=== PATIENT | female | born 1935 | race Caucasian/White ===

== ENCOUNTER 2023-10-30 10:15 | Inpatient (IN) | payer OTHER ==
[~2023-10-30] VITALS: Ht 165.1 cm; Wt 84.6 kg
[2023-10-30 10:37] VITALS: PULSE 98; RESP 18; O2SAT 100
[2023-10-30 11:20] LABS: Basophils # (auto) 0.1 10 ^3/uL (0-0.2); Lymphocytes # (auto) 3.4 10 ^3/uL (0.4-5.4)
[2023-10-30 11:22] LABS: Basophils % (auto) 0.6 % (0.0-2.0); Eosinophils # (auto) 0.2 10 ^3/uL (0-0.8); Eosinophils % (auto) 1.7 % (0.0-7.0); Hematocrit 38.2 % (36.0-46.0); Hemoglobin 12.2 g/dL (12.2-16.2); Mean Corpuscular Hemoglobin 29.8 pg (28.0-32.0); Mean Corpuscular Hgb Conc. 31.8 g/dL (32.0-36.0); Mean Corpuscular Volume 93.5 fL (80.0-100.0); Monocytes % (auto) 6.9 % (0.0-12.0); Neutrophils # (auto) 9.4 10 ^3/uL (1.6-8.6); Neutrophils % (auto) 66.8 % (37.0-80.0); Nucleated Red Blood Cells % 0.2 %; Red Blood Cells 4.09 10^6/uL (4.0-5.20); Red Cell Distribution Width 14.7 % (11.8-14.3); White Blood Cell 14.1 10^3/uL (4.4-10.8)
[2023-10-30 11:36] LABS: INR 1.03 (0.9-1.15); Partial Thromboplastin Time 27.1 SEC (24.5-34.5); Prothrombin Time 10.8 sec (9.3-11.8)
[2023-10-30 11:43] LABS: Alanine Aminotransferase 98 U/L (7-40); Albumin 3.6 g/dL (3.2-4.8); Alkaline Phosphatase 147 U/L (46-116); Anion Gap 5 (5-15); Aspartate Aminotransferase 50 U/L (13-40); BUN/Creatinine Ratio 38.5 (10.0-20.0); Bilirubin, Total 0.3 mg/dL (0.2-1.0); Blood Urea Nitrogen 35 mg/dL (9-23); Calcium 12.4 mg/dL (8.7-10.4); Carbon Dioxide 24 mmol/L (20-30); Chloride 110 mmol/L (98-107); Glucose 90 mg/dL (74-106); Potassium 4.5 mmol/L (3.5-5.1); Sodium 139 mmol/L (136-145); Total Protein 7.1 g/dL (5.7-8.2)
[2023-10-30] MEDS ORDERED: NITROGLYCERIN 0.4 MG SL TAB SL PRN (14:15)
[2023-10-30] MEDS ORDERED: MORPHINE SULFATE INJ 2 MG/ml SYRG IV PRN (14:15)
[2023-10-30] MEDS ORDERED: ACETAMINOPHEN 325 MG TAB PO PRN (14:15)
[2023-10-30 14:42] LABS: Triglycerides 114 mg/dL (< 150)
[2023-10-30 14:43] LABS: LDL Cholesterol 95 mg/dL (< 100)
[2023-10-30 14:44] LABS: Cholesterol 157 mg/dL (< 200); HDL Cholesterol 43 mg/dL (40-59)
[2023-10-30] MEDS: SODIUM CHLORIDE 0.9% 1,000 ML IV SCH (15:21)
[2023-10-30] MEDS: PANTOPRAZOLE 40 MG/10 ML VIAL INJ IV ONE (15:21)
[2023-10-30 15:39] LABS: Urine Amorphous Crystal FEW /hpf (None Seen); Urine Bacteria MOD /hpf (None Seen); Urine Blood Negative /uL (Negative); Urine Clarity Clear (Clear); Urine Color Yellow (Yellow); Urine Protein, UAD Negative (Negative); Urine Specific Gravity 1.014 (1.001-1.035); Urine Urobilinogen Normal (Negative); Urine WBC 59 /hpf (0 - 5)
[2023-10-30 15:59] LABS: Amphetamine Screen, Urine Neg (NEGATIVE)
[2023-10-30 16:00] LABS: Barbiturate Scree,Urine Neg (NEGATIVE); Cocaine Screen, Urine Neg (NEGATIVE); Opiate Scree,Urine Neg (NEGATIVE)
[2023-10-30 16:01] LABS: Benzodiazephine Screen, Urine Neg (NEGATIVE); Cannabinoid Screen, Urine Neg (NEGATIVE); Phencyclidine Screen, Urine Neg (NEGATIVE)
[2023-10-30 20:24] LABS: Basophils # (auto) 0 10 ^3/uL (0-0.2); Basophils % (auto) 0.2 % (0.0-2.0); Eosinophils # (auto) 0.1 10 ^3/uL (0-0.8); Hematocrit 40.4 % (36.0-46.0); Hemoglobin 12.1 g/dL (12.2-16.2); Lymphocytes # (auto) 2.8 10 ^3/uL (0.4-5.4); Lymphocytes % (auto) 20.4 % (10.0-50.0); Mean Corpuscular Hemoglobin 30.3 pg (28.0-32.0); Mean Corpuscular Hgb Conc. 29.9 g/dL (32.0-36.0); Mean Corpuscular Volume 101.1 fL (80.0-100.0); Monocytes # (auto) 1.2 10 ^3/uL (0-1.3); Monocytes % (auto) 8.4 % (0.0-12.0); Neutrophils # (auto) 9.7 10 ^3/uL (1.6-8.6); Nucleated Red Blood Cells % 0.2 %; Red Cell Distribution Width 16.7 % (11.8-14.3); White Blood Cell 13.9 10^3/uL (4.4-10.8)
[2023-10-30 20:34] VITALS: PULSE 107; RESP 20
[2023-10-30] MEDS: ASCORBIC ACID 500 MG TAB PO SCH (22:00)
[2023-10-31 08:00] VITALS: PULSE 95
[2023-10-31 09:00] VITALS: BP 148/76; PULSE 93; RESP 14; TEMP 97.8; O2SAT 97
[2023-10-31] MEDS: ZINC SULFATE 220mg CAP or TAB PO SCH (10:28)
[2023-10-31] MEDS: cefTRIAXone 1GM/50ML D5W 50 ML IV ONE (10:28)
[2023-10-31] MEDS: PANTOPRAZOLE 40 MG/10 ML VIAL INJ IV SCH (10:28)
[2023-10-31] MEDS: MULTIPLE VITAMIN TAB PO SCH (10:29)
[2023-10-31] MEDS ORDERED: CINA30TA14 PO (12:50)
[2023-10-31] MEDS ORDERED: AMLO1TAB23 PO (12:50)
[2023-10-31] MEDS ORDERED: TELM1TAB35 PO (12:50)
[2023-10-31] MEDS ORDERED: LATA0.008 EACHEYE (12:52)
[2023-10-31] MEDS ORDERED: BRIM0.159 EACHEYE (12:52)
[2023-10-31] MEDS ORDERED: NETA0.02 RIGHTEYE (12:52)
[2023-10-31 12:55] VITALS: BP 134/73; PULSE 101; RESP 18; TEMP 97.3; O2SAT 99
[2023-10-31 14:08] LABS: Alanine Aminotransferase 67 U/L (7-40); Albumin 3.6 g/dL (3.2-4.8); Alkaline Phosphatase 142 U/L (46-116); Anion Gap 5 (5-15); Aspartate Aminotransferase 39 U/L (13-40); BUN/Creatinine Ratio 23.9 (10.0-20.0); Bilirubin, Total 0.3 mg/dL (0.2-1.0); Blood Urea Nitrogen 21 mg/dL (9-23); Calcium 12.9 mg/dL (8.5-10.1); Carbon Dioxide 24 mmol/L (20-30); Chloride 114 mmol/L (98-107); Glucose 88 mg/dL (74-106); Potassium 4.4 mmol/L (3.5-5.1); Sodium 143 mmol/L (136-145); Total Protein 6.7 g/dL (5.7-8.2)
[2023-10-31 16:31] VITALS: BP 141/60; PULSE 102; RESP 16; TEMP 98.2; O2SAT 100
[2023-10-31 16:37] LABS: Basophils # (auto) 0 10 ^3/uL (0-0.2); Basophils % (auto) 0.4 % (0.0-2.0); Eosinophils # (auto) 0.1 10 ^3/uL (0-0.8); Eosinophils % (auto) 0.7 % (0.0-7.0); Hemoglobin 11.6 g/dL (12.2-16.2); Lymphocytes # (auto) 2.4 10 ^3/uL (0.4-5.4); Lymphocytes % (auto) 19.4 % (10.0-50.0); Mean Corpuscular Hemoglobin 29.3 pg (28.0-32.0); Mean Corpuscular Hgb Conc. 31.3 g/dL (32.0-36.0); Mean Corpuscular Volume 93.5 fL (80.0-100.0); Monocytes # (auto) 0.8 10 ^3/uL (0-1.3); Monocytes % (auto) 6.7 % (0.0-12.0); Neutrophils % (auto) 72.8 % (37.0-80.0); Nucleated Red Blood Cells % 0.1 %; Red Blood Cells 3.96 10^6/uL (4.0-5.20); Red Cell Distribution Width 14.9 % (11.8-14.3); White Blood Cell 12.4 10^3/uL (4.4-10.8)
[2023-10-31 20:00] VITALS: PULSE 100; PULSE 107; RESP 18
[2023-10-31] MEDS: GOLYTELY 4L KIT PO ONE (21:43)
[2023-10-31 22:00] VITALS: BP 110/77; PULSE 90; RESP 20; TEMP 97.6; O2SAT 96
[2023-11-01] VITALS (7 sets, daily range): BP systolic 124–139; BP diastolic 66–74; PULSE 84–115; RESP 16–20; TEMP 97.4–98.3; O2SAT 91–99
[2023-11-01] MEDS: cefTRIAXone 1GM/50ML D5W 50 ML IV SCH (08:56)
[2023-11-01] MEDS: IOHEXOL 350 MG/ML 100ML IJ ONE (13:42)
[2023-11-01 14:52] LABS: Basophils # (auto) 0.1 10 ^3/uL (0-0.2); Basophils % (auto) 0.4 % (0.0-2.0); Eosinophils # (auto) 0.2 10 ^3/uL (0-0.8); Eosinophils % (auto) 1.3 % (0.0-7.0); Hematocrit 31.7 % (36.0-46.0); Hemoglobin 9.9 g/dL (12.2-16.2); Lymphocytes # (auto) 2.4 10 ^3/uL (0.4-5.4); Mean Corpuscular Hemoglobin 28.7 pg (28.0-32.0); Mean Corpuscular Hgb Conc. 31.3 g/dL (32.0-36.0); Mean Corpuscular Volume 91.5 fL (80.0-100.0); Monocytes % (auto) 7.7 % (0.0-12.0); Neutrophils # (auto) 9.2 10 ^3/uL (1.6-8.6); Neutrophils % (auto) 71.6 % (37.0-80.0); Nucleated Red Blood Cells % 0.1 %; Red Blood Cells 3.47 10^6/uL (4.0-5.20); Red Cell Distribution Width 14.7 % (11.8-14.3); White Blood Cell 12.8 10^3/uL (4.4-10.8)
[2023-11-01 15:20] LABS: Alanine Aminotransferase 51 U/L (7-40); Albumin 3.2 g/dL (3.2-4.8); Alkaline Phosphatase 118 U/L (46-116); Anion Gap 5 (5-15); Aspartate Aminotransferase 30 U/L (13-40); BUN/Creatinine Ratio 24.3 (10.0-20.0); Bilirubin, Total 0.3 mg/dL (0.2-1.0); Blood Urea Nitrogen 18 mg/dL (9-23); Carbon Dioxide 23 mmol/L (20-30); Chloride 114 mmol/L (98-107); Glucose 95 mg/dL (74-106); Potassium 4.1 mmol/L (3.5-5.1); Sodium 142 mmol/L (136-145); Total Protein 6.1 g/dL (5.7-8.2)
[2023-11-01] MEDS: SODIUM CHLORIDE 0.9% 1,000 ML IV SCH (16:00)
[2023-11-01] MEDS: CALCITONIN 400unit/2ml Vial (200unit/ml) IM ONE (16:00)
[2023-11-01] MEDS: ENOXAPARIN SOD 100 MG/1 ML SYRINGE SC SCH (18:04)
[2023-11-02] VITALS (7 sets, daily range): BP systolic 111–147; BP diastolic 63–72; PULSE 77–105; RESP 17–21; TEMP 97.2–98.9; O2SAT 99–100
[2023-11-02 08:30] LABS: Hepatitis B Surface Antigen Negative (Negative)
[2023-11-02 08:35] LABS: Hepatitis B Surface Antigen Negative (Negative)
[2023-11-02 08:51] LABS: Hepatitis A Ab IgM Negative; Hepatitis B Core IgM Negative
[2023-11-02 08:52] LABS: Hepatitis C Antibody Negative (Negative)
[2023-11-02 08:56] LABS: Hepatitis C Antibody Negative (Negative)
[2023-11-02 13:35] LABS: Basophils # (auto) 0.1 10 ^3/uL (0-0.2); Basophils % (auto) 0.7 % (0.0-2.0); Eosinophils # (auto) 0.3 10 ^3/uL (0-0.8); Eosinophils % (auto) 2.7 % (0.0-7.0); Hematocrit 31.6 % (36.0-46.0); Hemoglobin 10.3 g/dL (12.2-16.2); Lymphocytes # (auto) 2.6 10 ^3/uL (0.4-5.4); Lymphocytes % (auto) 25.1 % (10.0-50.0); Mean Corpuscular Hgb Conc. 32.6 g/dL (32.0-36.0); Monocytes # (auto) 0.9 10 ^3/uL (0-1.3); Monocytes % (auto) 8.5 % (0.0-12.0); Neutrophils # (auto) 6.6 10 ^3/uL (1.6-8.6); Red Blood Cells 3.43 10^6/uL (4.0-5.20); Red Cell Distribution Width 14.7 % (11.8-14.3); White Blood Cell 10.5 10^3/uL (4.4-10.8)
[2023-11-02 13:53] LABS: Alanine Aminotransferase 45 U/L (7-40); Albumin 3.2 g/dL (3.2-4.8); Alkaline Phosphatase 121 U/L (46-116); Anion Gap 5 (5-15); Aspartate Aminotransferase 31 U/L (13-40); BUN/Creatinine Ratio 19.4 (10.0-20.0); Blood Urea Nitrogen 13 mg/dL (9-23); Calcium 11.7 mg/dL (8.5-10.1); Carbon Dioxide 27 mmol/L (20-30); Chloride 116 mmol/L (98-107); Glucose 93 mg/dL (74-106)
[2023-11-02 13:54] LABS: % Iron Saturation 22.8 % (15-50); Bilirubin, Total 0.2 mg/dL (0.2-1.0); Total Protein 5.9 g/dL (5.7-8.2)
[2023-11-02 13:55] LABS: Sodium 148 mmol/L (136-145)
[2023-11-02] MEDS ORDERED: APIX2.5T PO (15:45)
[2023-11-03] VITALS (11 sets, daily range): BP systolic 128–157; BP diastolic 68–83; PULSE 79–117; RESP 12–22; TEMP 97.8–98.6; O2SAT 94–100
[2023-11-03] MEDS: LIDOCAINE 2%HCL (LOCAL ANESTH.) INJ 20ML MDV ONE (08:27)
[2023-11-03] MEDS: IODIXANOL 320MG/ML 100ML BTL IV ONE (08:27)
[2023-11-03] MEDS: fentaNYL CITRATE 100 MCG/2 ML VL ONE (08:47)
[2023-11-03] MEDS: MIDAZOLAM HCL 2MG/2ML 2ml VIAL (1mg/ml) ONE (08:48)
[2023-11-03 14:04] LABS: Basophils # (auto) 0 10 ^3/uL (0-0.2); Basophils % (auto) 0.3 % (0.0-2.0); Eosinophils # (auto) 0.2 10 ^3/uL (0-0.8); Eosinophils % (auto) 2.3 % (0.0-7.0); Hematocrit 34.6 % (36.0-46.0); Hemoglobin 10.9 g/dL (12.2-16.2); Lymphocytes # (auto) 2.3 10 ^3/uL (0.4-5.4); Lymphocytes % (auto) 23.8 % (10.0-50.0); Mean Corpuscular Hgb Conc. 31.7 g/dL (32.0-36.0); Mean Corpuscular Volume 91.7 fL (80.0-100.0); Monocytes # (auto) 0.7 10 ^3/uL (0-1.3); Monocytes % (auto) 7.2 % (0.0-12.0); Neutrophils # (auto) 6.5 10 ^3/uL (1.6-8.6); Neutrophils % (auto) 66.4 % (37.0-80.0); Nucleated Red Blood Cells % 0.2 %; Red Blood Cells 3.77 10^6/uL (4.0-5.20); White Blood Cell 9.8 10^3/uL (4.4-10.8)
[2023-11-03 14:21] LABS: Alanine Aminotransferase 43 U/L (7-40); Albumin 3.2 g/dL (3.2-4.8); Alkaline Phosphatase 130 U/L (46-116); Anion Gap 5 (5-15); Aspartate Aminotransferase 37 U/L (13-40); BUN/Creatinine Ratio 13.3 (10.0-20.0); Blood Urea Nitrogen 8 mg/dL (9-23); Calcium 11.5 mg/dL (8.5-10.1); Carbon Dioxide 27 mmol/L (20-30); Chloride 116 mmol/L (98-107); Glucose 105 mg/dL (74-106); Potassium 3.2 mmol/L (3.5-5.1); Sodium 148 mmol/L (136-145)
[2023-11-03 14:22] LABS: Bilirubin, Total 0.3 mg/dL (0.2-1.0); Total Protein 6.1 g/dL (5.7-8.2)
[2023-11-03] MEDS: GOLYTELY 4L KIT PO ONE (15:30)
[2023-11-04] VITALS (8 sets, daily range): BP systolic 113–150; BP diastolic 54–84; PULSE 66–102; RESP 18–20; TEMP 97.5–98.7; O2SAT 91–100
[2023-11-04] MEDS: GOLYTELY 4L KIT PO ONE (05:47)
[2023-11-04] MEDS: MAGNESIUM CITRATE SOLUTION 300 ML BTL PO ONE (06:00)
[2023-11-04 06:19] LABS: Basophils # (auto) 0 10 ^3/uL (0-0.2); Basophils % (auto) 0.2 % (0.0-2.0); Eosinophils # (auto) 0.3 10 ^3/uL (0-0.8); Eosinophils % (auto) 3.4 % (0.0-7.0); Hematocrit 31.9 % (36.0-46.0); Hemoglobin 10.3 g/dL (12.2-16.2); Lymphocytes # (auto) 2.1 10 ^3/uL (0.4-5.4); Lymphocytes % (auto) 20.8 % (10.0-50.0); Mean Corpuscular Hemoglobin 29.6 pg (28.0-32.0); Mean Corpuscular Hgb Conc. 32.3 g/dL (32.0-36.0); Mean Corpuscular Volume 91.6 fL (80.0-100.0); Monocytes # (auto) 0.7 10 ^3/uL (0-1.3); Neutrophils # (auto) 6.9 10 ^3/uL (1.6-8.6); Neutrophils % (auto) 68.6 % (37.0-80.0); Nucleated Red Blood Cells % 0.1 %; Red Blood Cells 3.48 10^6/uL (4.0-5.20); White Blood Cell 10.1 10^3/uL (4.4-10.8)
[2023-11-04 06:46] LABS: Alanine Aminotransferase 38 U/L (7-40); Alkaline Phosphatase 124 U/L (46-116); Anion Gap 6 (5-15); Aspartate Aminotransferase 32 U/L (13-40); BUN/Creatinine Ratio 9.7 (10.0-20.0); Blood Urea Nitrogen 6 mg/dL (9-23); Calcium 11.4 mg/dL (8.5-10.1); Carbon Dioxide 26 mmol/L (20-30); Chloride 115 mmol/L (98-107); Glucose 85 mg/dL (74-106); Potassium 3.4 mmol/L (3.5-5.1); Sodium 147 mmol/L (136-145)
[2023-11-04 06:47] LABS: Bilirubin, Total 0.3 mg/dL (0.2-1.0); Total Protein 5.6 g/dL (5.7-8.2)
[2023-11-04] MEDS: POTASSIUM CHL 20MEQ/100ML 100 ML IV ONE (09:31)
[2023-11-04] MEDS ORDERED: fentaNYL CITRATE 100 MCG/2 ML VL ONE (14:39)
[2023-11-04] MEDS ORDERED: ePHEDrine SULFATE 50 MG/ML AMP ONE (14:52)
[2023-11-04] MEDS ORDERED: PROPOFOL 10 MG/ML 20 ML IV ONE (14:54)
[2023-11-05 01:00] VITALS: BP 127/70; PULSE 103; RESP 17; TEMP 98.5; O2SAT 96
[2023-11-05 05:00] VITALS: BP 130/70; PULSE 95; RESP 18; TEMP 98.4; O2SAT 95
[2023-11-05 05:43] LABS: Basophils # (auto) 0 10 ^3/uL (0-0.2); Basophils % (auto) 0.4 % (0.0-2.0); Eosinophils # (auto) 0.3 10 ^3/uL (0-0.8); Eosinophils % (auto) 2.8 % (0.0-7.0); Hemoglobin 9.4 g/dL (12.2-16.2); Lymphocytes # (auto) 2.4 10 ^3/uL (0.4-5.4); Lymphocytes % (auto) 21.8 % (10.0-50.0); Mean Corpuscular Hemoglobin 28.7 pg (28.0-32.0); Mean Corpuscular Hgb Conc. 31.2 g/dL (32.0-36.0); Mean Corpuscular Volume 91.8 fL (80.0-100.0); Monocytes # (auto) 0.6 10 ^3/uL (0-1.3); Monocytes % (auto) 5.5 % (0.0-12.0); Neutrophils # (auto) 7.7 10 ^3/uL (1.6-8.6); Neutrophils % (auto) 69.5 % (37.0-80.0); Nucleated Red Blood Cells % 0.1 %; Red Blood Cells 3.27 10^6/uL (4.0-5.20); Red Cell Distribution Width 14.8 % (11.8-14.3)
[2023-11-05 06:12] LABS: Alanine Aminotransferase 41 U/L (7-40); Albumin 2.6 g/dL (3.2-4.8); Alkaline Phosphatase 120 U/L (46-116); Anion Gap 10 (5-15); Aspartate Aminotransferase 37 U/L (13-40); BUN/Creatinine Ratio 14.3 (10.0-20.0); Bilirubin, Total 0.2 mg/dL (0.2-1.0); Blood Urea Nitrogen 8 mg/dL (9-23); Calcium 10.6 mg/dL (8.5-10.1); Carbon Dioxide 20 mmol/L (20-30); Chloride 114 mmol/L (98-107); Glucose 75 mg/dL (74-106); Potassium 3.6 mmol/L (3.5-5.1); Sodium 144 mmol/L (136-145)
[2023-11-05 06:13] LABS: Total Protein 4.7 g/dL (5.7-8.2)
[2023-11-05 08:00] VITALS: BP 106/53; PULSE 86; PULSE 97; RESP 16; TEMP 97.9; O2SAT 97
[2023-11-05] MEDS ORDERED: LEVO500T91 PO (08:38)
[2023-11-05 09:00] VITALS: BP 106/53; PULSE 97; RESP 16; TEMP 97.9; O2SAT 97
[2023-11-05 10:41] VITALS: BP 100/60; PULSE 97; RESP 18; TEMP 97.9; O2SAT 91
[2023-11-05 13:00] VITALS: BP 135/80; PULSE 82; RESP 16; TEMP 97.9; O2SAT 92
[2023-11-06 09:06] LABS: Vitamin D 25-Hydroxy 39 ng/mL (.); Vitamin D-2 25-Hydroxy <1.0 ng/mL (.); Vitamin D-3 25-Hydroxy 39 ng/mL (.)
== END 2023-11-05 17:24 | disposition home health service (06) | DRG 377 ==
LOC: ER 10:15 → EDBD 10:15 → TELE 14:18 → TELE-WESTW 18:30
PROVIDERS: ADMIT Nurse Practitioner Family; ATTEND Student in an Organized Health Care Education/Training Program
PROC: 06H03DZ Insertion of Intraluminal Device into Inferior Vena Cava, Percutaneous Approach (ICD-10-PCS; 2023-11-03)
PROC: 0DJD8ZZ Inspection of Lower Intestinal Tract, Via Natural or Artificial Opening Endoscopic (ICD-10-PCS; principal; 2023-11-04 14:40)
DX: K57.31 Diverticulosis of large intestine without perforation or abscess with bleeding (principal); G93.41 Metabolic encephalopathy; I26.99 Other pulmonary embolism without acute cor pulmonale; J96.01 Acute respiratory failure with hypoxia; I82.441 Acute embolism and thrombosis of right tibial vein; N39.0 Urinary tract infection, site not specified; L89.152 Pressure ulcer of sacral region, stage 2; Z74.01 Bed confinement status; I10 Essential (primary) hypertension; E03.9 Hypothyroidism, unspecified; E66.01 Morbid (severe) obesity due to excess calories; E83.52 Hypercalcemia; K59.00 Constipation, unspecified; S90.32XA Contusion of left foot, initial encounter; S90.31XA Contusion of right foot, initial encounter; B96.5 Pseudomonas (aeruginosa) (mallei) (pseudomallei) as the cause of diseases classified elsewhere; Z68.31 Body mass index [BMI] 31.0-31.9, adult
CPT/HCPCS: 36415; 37191; 37619; 70450; 71045; 71275; 74176; 76705; 76937; 76942; 80053; 80061; 80074; 80307; 81001; 82140; 82270; 82306; 82607; 82728; 83540; 83550; 83605; 83970; 84443; 84484; 85025; 85610; 85730; 86803; 86850; 86900; 86901; 87040; 87077; 87081; 87086; 87088; 87186; 87340; 93005; 93970; 97110; 97163; 97530; 99152; C1894; C9113; G0378; J2250; J2704; J3480; Q9967